=== PATIENT | female | born 2000 | race American Indian/Alaskan Native ===

== ENCOUNTER 2022-04-25 21:31 | Observation (INO) ==
[2022-04-25] MEDS ORDERED: IOPAMIDOL 100 ML BOTTLE IV ONE (21:32)
--- NOTE | 2022-04-25 21:36 | Emergency Department Note ---
HPI General Chief complaint: Cold/Flu Symptoms Stated complaint: cold flu symptoms Time Seen by Provider: 04/25/22 21:35 History of Present Illness HPI Narrative: Narrative: Patient is a 22-year-old female with no significant history who presents to the emergency department due to headache, runny nose, cough, side pain when she coughs, and decreased urinary frequency. Patient states that she became ill approximately 2 weeks ago with runny nose and cough. She states at that time she also had a sore throat. She states that this started to get better, and then she went to [place] recently. She states that while in [place] she started to have worsening symptoms including worsening cough. She states that she started to have rib pain in the side of the chest on the right. She states that this pain is when she coughs. She also endorses runny nose. She endorses shortness of breath when she is coughing. She states that she had nausea and vomiting yesterday, but not today. She states that she felt like she started to cough more when she was drinking water, so stopped drinking as much water, and was eating more soup. She states that she started to have a decreased frequency of urination, and some lightheadedness. She denies any other symptoms at this time. Related Data Home Medications Medication Instructions Recorded Confirmed No Known Home Meds 04/25/22 04/25/22 Allergies Allergy/AdvReac Type Severity Reaction Status Date / Time No Known Drug Allergies Allergy Unverified 04/25/22 21:38 Review of Systems ROS ROS Narrative: Narrative: Constitutional: Reports fever and chills; Denies weakness Eyes: Denies eye pain or vision change ENT ED: Reports rhinorrhea; Denies throat pain or hearing loss Cardiovascular: Denies chest pain or edema Respiratory: Reports shortness of breath and cough Gastrointestinal: Reports nausea and vomiting; Denies abdominal pain, diarrhea, constipation, hematochezia or melena Musculoskeletal: Denies back pain or myalgia Integumentary: Denies rash or lesions Neurological: Denies headache, weakness, numbness, confusion, abnormal gait or dizziness Endocrine: Denies fatigue or polyuria Hematological/Lymphatic: Denies easy bleeding or easy bruising [facility] Narrative Patient History Narrative: Narrative: Medical/Surgical/Family History All Active Problems (Updated 04/26/22 @ 01:58 by Basim Remy MD) Pneumonia (Acute) Tachycardia (Acute) Exam Narrative Narrative: Narrative: General General appearance: Present alert and in no apparent distress; Absent anxious, appears intoxicated or sleepy Head Head: Present atraumatic and normocephalic Eye Eye: Present EOMI; Absent scleral icterus or nystagmus ENT ENT: Present mucous membranes moist; Absent nasal congestion Neck Neck: Present full ROM; Absent tenderness Chest Chest: Present normal inspection and symmetric chest wall rise; Absent tenderness Respiratory Respiratory: Present normal lung sounds bilaterally and decreased breath sounds (Left lower lung field); Absent respiratory distress or accessory muscle use Cardiovascular Cardiovascular: Present regular rate, normal rhythm and normal heart sounds Adbominal Abdominal: Present soft and normal bowel sounds; Absent distention or tenderness Extremities Extremities: Present normal inspection and full ROM Back Back: Present normal inspection and full ROM Neurological Neurological: Present alert and oriented X3 Psychiatric Psychiatric: Present normal affect and normal mood Skin Skin: Present warm (WNL), dry and normal color Course Vital Signs Vital signs: Vital Signs Temperature 101.8 F H 04/25/22 21:32 Pulse Rate 129 H 04/25/22 21:32 Respiratory Rate 20 04/25/22 21:32 Blood Pressure 134/79 04/25/22 21:32 Pulse Oximetry (%) 95 04/25/22 21:32 Oxygen Delivery Method 04/25/22 21:32 Temperature 99.7 F H 04/26/22 01:32 Pulse Rate 114 H 04/26/22 01:01 Respiratory Rate 20 04/25/22 21:32 Blood Pressure 115/73 04/26/22 01:01 Pulse Oximetry (%) 96 04/26/22 01:01 Oxygen Delivery Method 04/25/22 21:32 [facility]DM Narrative Medical decision making narrative: Narrative: Patient is a 22-year-old female who presents to the emergency department due to cough, right-sided chest pain, and general malaise. Differential diagnoses include COVID, influenza, other viral illness, bacterial pneumonia, and pulmonary embolus. Patient's labs are significant for white blood cell count of 13.1, D-dimer of 0. 7, and procalcitonin of 0.17. Patient received 2 L of fluid without resolution of tachycardia. Because patient met sepsis criteria she was given ceftriaxone and azithromycin. Patient CT scan does not demonstrate a pulmonary embolus, but does demonstrate left lower lobe pneumonia. Due to patient meeting sepsis criteria and due to her persistent tachycardia I spoke to Dr. Evans and he has agreed to admit patient. Lab Data Result diagrams: 04/26/22 22:44 Labs: Lab Results 04/25/22 04/25/22 04/25/22 Range/Units 22:13 22:44 22:44 WBC (4.5-11.0) K/mcL RBC (3.59-5.38) M/mcL Hgb (11.2-15.7) g/dL Hct (34.1-44.9) % POC Hct 34.0 L (36-48) MCV (80.0-100.0) fL MCH (26.0-34.0) pg MCHC (31.0-36.0) g/dL RDW (11.5-14.5) % Plt Count (140-440) K/mcL MPV (8.8-12.5) fL Immature Gran % (Auto) (0.0-0.5) % Neut % (Auto) (38.0-78.0) % Lymph % (Auto) (15.5-49.0) % [place] % (Auto) (1.0-12.0) % Eos % (Auto) (0.0-7.0) % Baso % (Auto) (0.0-2.0) % Lymph # (Auto) (1.50-4.80) K/mcL [place] # (Auto) (0.10-0.90) K/mcL Eos # (Auto) (0.00-0.70) K/mcL Baso # (Auto) (0.00-0.30) K/mcL Immature Gran # (0.00-0.05) K/mcl Absolute Neutrophils (1.80-8.00) K/mcL D-Dimer 0.70 H (0.27-0.50) ug/mL POC VBG pH (7.32-7.42) POC VBG pCO2 at Temp (41-51) POC VBG pO2 (25-40) POC VBG HCO3 (24-28) POC VBG Total CO2 (25-29) POC Venous O2 Sat (40-70) POC VBG Base Excess (-2-2) VBG Lactic Acid (0.5-2) POC Sodium 136 (133-145) POC Potassium 3.8 (3.3-5.1) POC Chloride 104 (96-108) POC Total CO2 22.0 (22-30) POC BUN 8 (6-20) POC Creatinine 0.7 (0.6-1.2) POC Glucose 122 H (70-105) POC WB Ioniz Calcium 1.10 L (1.16-1.32) Procalcitonin 0.17 H (<0.10) ng/mL Urine Color Urine Appearance (Clear) Urine pH (5.0-9.0) Ur Specific [place] (1.000-1.035) Urine Protein (Negative) mg/dL Urine Glucose (UA) (Negative) mg/dL Urine Ketones (Negative) mg/dL Urine Occult Blood (Negative) mukesh/mcL Urine Nitrate (Negative) Urine Bilirubin (Negative) mg/dL Urine Urobilinogen mg/dL Ur Leukocyte Esterase (Negative) /uL Urine RBC (0-3) /hpf Urine WBC (0-4) /hpf Ur Squamous Epith Cells (0-4) /hpf Ur Transition Epith Cell (0-2) /hpf Urine Bacteria (0) /hpf Urine Mucus (None) /hpf Ur Culture Indicated? 04/25/22 04/25/22 04/26/22 Range/Units 23:30 23:58 22:44 WBC 13.1 H (4.5-11.0) K/mcL RBC 3.87 (3.59-5.38) M/mcL Hgb 11.6 (11.2-15.7) g/dL Hct 34.8 (34.1-44.9) % POC Hct (36-48) MCV 89.9 (80.0-100.0) fL MCH 30.0 (26.0-34.0) pg MCHC 33.3 (31.0-36.0) g/dL RDW 12.2 (11.5-14.5) % Plt Count 232 (140-440) K/mcL MPV 11.5 (8.8-12.5) fL Immature Gran % (Auto) 0.5 (0.0-0.5) % Neut % (Auto) 80.8 H (38.0-78.0) % Lymph % (Auto) 7.6 L (15.5-49.0) % [place] % (Auto) 10.2 (1.0-12.0) % Eos % (Auto) 0.6 (0.0-7.0) % Baso % (Auto) 0.3 (0.0-2.0) % Lymph # (Auto) 1.00 L (1.50-4.80) K/mcL [place] # (Auto) 1.34 H (0.10-0.90) K/mcL Eos # (Auto) 0.08 (0.00-0.70) K/mcL Baso # (Auto) 0.04 (0.00-0.30) K/mcL Immature Gran # 0.06 H (0.00-0.05) K/mcl Absolute Neutrophils 10.57 H (1.80-8.00) K/mcL D-Dimer (0.27-0.50) ug/mL POC VBG pH 7.43 H (7.32-7.42) POC VBG pCO2 at Temp 29.3 L (41-51) POC VBG pO2 68 H (25-40) POC VBG HCO3 19.5 L (24-28) POC VBG Total CO2 20.0 L (25-29) POC Venous O2 Sat 94.0 H (40-70) POC VBG Base Excess -5.0 L (-2-2) VBG Lactic Acid 0.6 (0.5-2) POC Sodium (133-145) POC Potassium (3.3-5.1) POC Chloride (96-108) POC Total CO2 (22-30) POC BUN (6-20) POC Creatinine (0.6-1.2) POC Glucose (70-105) POC WB Ioniz Calcium (1.16-1.32) Procalcitonin (<0.10) ng/mL Urine Color Lt. yellow Urine Appearance Sl cloudy A (Clear) Urine pH 7.0 (5.0-9.0) Ur Specific [place] 1.010 (1.000-1.035) Urine Protein Trace A (Negative) mg/dL Urine Glucose (UA) Negative (Negative) mg/dL Urine Ketones Negative (Negative) mg/dL Urine Occult Blood Moderate A (Negative) mukesh/mcL Urine Nitrate Negative (Negative) Urine Bilirubin Negative (Negative) mg/dL Urine Urobilinogen Normal mg/dL Ur Leukocyte Esterase Small A (Negative) /uL Urine RBC 4 H (0-3) /hpf Urine WBC 6 H (0-4) /hpf Ur Squamous Epith Cells 10 H (0-4) /hpf Ur Transition Epith Cell < 1 (0-2) /hpf Urine Bacteria Mod A (0) /hpf Urine Mucus Few A (None) /hpf Ur Culture Indicated? No ED POC Tests ED POC Tests: AP - Influenza A Negative AP - Influenza B Negative AP - SARS Antigen Negative HCG POC Results Negative EKG Data EKG #1: EKG attestation: Yes I reviewed and interpreted this EKG. EKG results narrative: Sinus tachycardia with a rate of 121, normal axis, [place] 138, QRS of 101, QTC of 412, T wave flattening in leads III and aVF, and absence of ST elevation or depression. Discharge Plan Patient/Caregiver Discharge Instructions Pt seen by FLUX TUBE ATTENDANT/PA only: No Clinical Impression: Pneumonia, Tachycardia Patient Disposition: Xfer As Inpt ([facility]) Condition: Undetermined Follow up with: No,PCP [Primary Care Provider] - Prescriptions: No Action No Known Home Meds
[2022-04-25] MEDS ORDERED: LACTATED RINGERS 1,000 ML IV ONE (21:43)
[2022-04-25] MEDS ORDERED: ACETAMINOPHEN 325 MG TABLET PO ONE (21:43)
[2022-04-25 22:17] LABS: POC Calcium, Ionized 1.1 (1.16-1.32); POC Creatinine 0.7 (0.6-1.2); POC Potassium 3.8 (3.3-5.1)
[2022-04-25] MEDS ORDERED: cefTRIAXone 1 GM VIAL IV ONE (22:43)
[2022-04-25] MEDS ORDERED: 0.9 % SODIUM CHLORIDE 1,000 ML IV ONE (22:51)
[2022-04-26 01:02] LABS: Appearance,Urine SL CLOUDY (Clear); Bacteria,Urine MOD /hpf (0); Bilirubin,Urine NEGATIVE (Negative); Color,Urine LT. YELLOW; Culture Indicated,Urine No; Glucose,Urine (UA) NEGATIVE (Negative); Ketones,Urine NEGATIVE (Negative); Leukocyte Esterase,Urine SMALL /uL (Negative); Mucus,Urine FEW /hpf; Nitrate,Urine NEGATIVE (Negative); Protein,Urine TRACE mg/dL (Negative); Urine Blood MODERATE ery/mcL (Negative); Urine RBC 4 /hpf (0-3); Urine Squamous Epithelial Cell 10 /hpf (0-4); Urine Transitional Epi Cells < 1 /hpf (0-2); Urine WBC 6 /hpf (0-4); Urobilinogen,Urine Normal
[2022-04-26] MEDS ORDERED: AZITHROMYCIN 500 MG in DEXTROSE 5% IN WATER 250 ML IV ONE (01:05)
[2022-04-26 01:37] LABS: Basophils # (Auto) 0.04 K/mcL (0.00-0.30); Basophils % (Auto) 0.3 % (0.0-2.0); Eosinophils # (Auto) 0.08 K/mcL (0.00-0.70); Eosinophils % (Auto) 0.6 % (0.0-7.0); Hematocrit 34.8 % (34.1-44.9); Hemoglobin 11.6 g/dL (11.2-15.7); Lymphocytes % (Auto) 7.6 % (15.5-49.0); Mean Cell Volume 89.9 fL (80.0-100.0); Mean Corpuscular HGB Conc 33.3 g/dL (31.0-36.0); Mean Platelet Volume 11.5 fL (8.8-12.5); Monocytes # (Auto) 1.34 K/mcL (0.10-0.90); Monocytes % (Auto) 10.2 % (1.0-12.0); Neutrophils % (Auto) 80.8 % (38.0-78.0); Platelet Count 232 K/mcL (140-440); RBC 3.87 M/mcL (3.59-5.38); Red Cell Distribution Width 12.2 % (11.5-14.5); WBC 13.1 K/mcL (4.5-11.0)
[2022-04-26] MEDS ORDERED: LACTATED RINGERS 1,000 ML IV SCH (02:00)
--- NOTE | 2022-04-26 07:41 | Internal Med History&Physical ---
HPI History of Present Illness Patient information: Note initiated : 04/26/22 at 7:35 am Service Date, if different from initiated Date: [] Patient: Kajal Hatch 22 y/o F admitted on 04/26/22 for cold flu symptoms. Chief Complaint: [] History of present illness: Ms. Hatch is a 22 year old female with no significant past medical history who presented to the emergency department for headache, rhinorrhea, productive cough and right-sided pleuritic chest pain. The patient also said she was urinating less frequently. The patient developed a viral-like illness about 2 weeks ago with a cough and runny nose. The patient says that her symptoms began to improve and she went to [place] with some friends however the symptoms then began to worsen. In the emergency department, the patient had a fever, tachycardia, leukocytosis. CTA done in the emergency department was reported as negative by the ED provider, final radiology report still pending at the time of admission. There is a dense consolidation in the left lower lobe consistent with pneumonia. Hospital medicine was consulted for admission for community- acquired pneumonia. The patient received ceftriaxone and azithromycin in the ED prior to admission. Upon further discussion, the patient denies substance use, physical exam does not suggest another focus of infection to explain the patient's septic presentation. Review of systems Constitutional: Positive for fevers and fatigue Cardiovascular: Positive for elevated heart rate, pleuritic right-sided chest pain Respiratory: Positive for productive cough and dyspnea Gastrointestinal: no abdominal pain, no nausea, vomiting, or diarrhea Genitourinary: Positive for decreased urination, no dysuria Musculoskeletal: no arthralgia or myalgia Integumentary: no skin lesion or wound Neurological: no focal weakness or numbness Psychiatric: no anxiety or depression Physical exam Head: Atraumatic, normal inspection. Eyes: normal appearance, no scleral icterus. Neck: full ROM Respiratory: Decreased respiratory sounds left lower lung field, crackles left midlung field. Cardiovascular: Regular tachycardia, S1, S2, no murmurs appreciated GI/Abdominal: soft, nontender, no guarding. Extremities: full range of motion, nontender. Neurological: CN II-XII intact, intact motor, intact sensation. Psychiatric: normal mood. Skin: warm, normal color PFSH PFSH All Active Problems (Updated 04/26/22 @ 01:58 by Basim Remy MD) Pneumonia (Acute) Tachycardia (Acute) Social History smoking status: Smoker, status unknown MEDS/ALLERGIES Home Medications and Allergies Home Medications Medication Instructions Recorded Confirmed Type No Known Home Meds 04/25/22 04/25/22 History Allergies Allergy/AdvReac Type Severity Reaction Status Date / Time No Known Drug Allergies Allergy Unverified 04/25/22 21:38 EXAM Constitutional Vitals: Temp Pulse Resp BP Pulse Ox O2 Del Method 98.2 F 113 H 15 119/70 95 04/26/22 03:13 04/26/22 03:13 04/26/22 03:13 04/26/22 03:13 04/26/22 03:13 04/26/22 03:13 DATA Data Completed and Pending Labs: Labs from last 24 hours 04/26/22 04/25/22 04/25/22 22:44 23:58 23:30 WBC 13.1 H RBC 3.87 Hgb 11.6 Hct 34.8 POC Hct MCV 89.9 MCH 30.0 MCHC 33.3 RDW 12.2 Plt Count 232 MPV 11.5 Immature Gran % (Auto) 0.5 Neut % (Auto) 80.8 H Lymph % (Auto) 7.6 L [place] % (Auto) 10.2 Eos % (Auto) 0.6 Baso % (Auto) 0.3 Lymph # (Auto) 1.00 L [place] # (Auto) 1.34 H Eos # (Auto) 0.08 Baso # (Auto) 0.04 Immature Gran # 0.06 H Absolute Neutrophils 10.57 H D-Dimer POC VBG pH 7.43 H POC VBG pCO2 at Temp 29.3 L POC VBG pO2 68 H POC VBG HCO3 19.5 L POC VBG Total CO2 20.0 L POC Venous O2 Sat 94.0 H POC VBG Base Excess -5.0 L VBG Lactic Acid 0.6 POC Sodium POC Potassium POC Chloride POC Total CO2 POC BUN POC Creatinine POC Glucose POC WB Ioniz Calcium Procalcitonin Urine Color Lt. yellow Urine Appearance Sl cloudy A Urine pH 7.0 Ur Specific [place] 1.010 Urine Protein Trace A Urine Glucose (UA) Negative Urine Ketones Negative Urine Occult Blood Moderate A Urine Nitrate Negative Urine Bilirubin Negative Urine Urobilinogen Normal Ur Leukocyte Esterase Small A Urine RBC 4 H Urine WBC 6 H Ur Squamous Epith Cells 10 H Ur Transition Epith Cell < 1 Urine Bacteria Mod A Urine Mucus Few A Ur Culture Indicated? No 04/25/22 04/25/22 04/25/22 22:44 22:44 22:13 WBC RBC Hgb Hct POC Hct 34.0 L MCV MCH MCHC RDW Plt Count MPV Immature Gran % (Auto) Neut % (Auto) Lymph % (Auto) [place] % (Auto) Eos % (Auto) Baso % (Auto) Lymph # (Auto) [place] # (Auto) Eos # (Auto) Baso # (Auto) Immature Gran # Absolute Neutrophils D-Dimer 0.70 H POC VBG pH POC VBG pCO2 at Temp POC VBG pO2 POC VBG HCO3 POC VBG Total CO2 POC Venous O2 Sat POC VBG Base Excess VBG Lactic Acid POC Sodium 136 POC Potassium 3.8 POC Chloride 104 POC Total CO2 22.0 POC BUN 8 POC Creatinine 0.7 POC Glucose 122 H POC WB Ioniz Calcium 1.10 L Procalcitonin 0.17 H Urine Color Urine Appearance Urine pH Ur Specific [place] Urine Protein Urine Glucose (UA) Urine Ketones Urine Occult Blood Urine Nitrate Urine Bilirubin Urine Urobilinogen Ur Leukocyte Esterase Urine RBC Urine WBC Ur Squamous Epith Cells Ur Transition Epith Cell Urine Bacteria Urine Mucus Ur Culture Indicated? A/P Narrative A/P Narrative: Assessment: 22-year-old female with no significant past medical history admitted for sepsis secondary to community-acquired pneumonia. #Sepsis secondary to community-acquired pneumonia Plan -Ceftriaxone and azithromycin for CAP. -IV fluids. -Follow WBC, monitor respiratory status and fever trend. -MRSA PCR. -Blood cultures x2. -Sputum gram stain and culture. -[place] PCR. -Follow-up pending CTA chest and chest x-ray report. -Regular diet. -CODE STATUS: Full -Disposition: Home when stable. Time Spent With Patient Time: Total time spent is greater than 50% in coordination of care (as documented) at patient's floor/unit and/or counseling patient: QUALITY VTE Deep Vein Thrombosis/Pulmonary Embolism Present on Admission: Yes
--- NOTE | 2022-04-26 08:31 | XRay Report ---
HISTORY: Cold and flu symptoms with cough and rib pain FINDINGS: There is a moderate size consolidating infiltrate in the left lower lobe, predominantly located behind the heart. Lung volumes are normal. Right lung is clear. No pleural effusion is present. No adenopathy is detected. The heart size is normal. No skeletal lesion is seen. IMPRESSION: Moderate left lower lobe pneumonia Interpreted and Authenticated by: Ralph Zuniga 04/26/22
--- NOTE | 2022-04-26 08:40 | Cat Scan Report ---
History: Cough, chest pain, elevated serum d-dimer level, left lower lobe pulmonary infiltrate TECHNIQUE: Following injection of intravenous nonionic contrast the chest was imaged during the pulmonary arterial phase. Sagittal, coronal and MIPS images were created. The radiation exposure was limited using dose reduction technology. FINDINGS: The pulmonary arteries are normal with no intraluminal filling defects. Aorta is normal in caliber and there is no atherosclerotic disease. The heart is normal in size and contour. There is a moderate-sized densely consolidating alveolar infiltrate in the left lower lobe. There are air bronchograms peripherally. In the second order bronchi there is mucous plugging. No pleural effusion is present. There are no enlarged lymph nodes. The remainder of the lungs are clear and normally expanded. No pleural effusion is present. IMPRESSION: Moderate left lower lobe pneumonia No evidence of pulmonary emboli Interpreted and Authenticated by: Ralph Zuniga 04/26/22
--- NOTE | 2022-04-26 08:51 | EKG ---
[facility] Test Date: 2022-04-25 Pat Name: Kajal Hatch Department: ED Room: Gender: Female Audit Clerk: : 2000 Requested By: Basim Remy Order Number: [id number] Reading MD: Juwan Zuniga M.D. Measurements Intervals [place] Rate: 121 P: 79 [place]: 138 QRS: 65 QRSD: 101 T: 4 QT: 290 QTc: 412 Interpretive Statements Sinus tachycardia Consider right ventricular hypertrophy Borderline T abnormalities, inferior leads Electronically Signed On 04-26-2022 8:51:04 PST by Juwan Zuniga M.D. /store/[email or web address]/[id number]
[2022-04-26] MEDS: cefTRIAXone 1 GM VIAL IV SCH (16:39)
[2022-04-26] MEDS: AZITHROMYCIN 500 MG in DEXTROSE 5% IN WATER 250 ML IV SCH (16:39)
[2022-04-26] MEDS: ACETAMINOPHEN 325 MG TABLET PO PRN (18:44)
[2022-04-27] MEDS: ACETAMINOPHEN 325 MG TABLET PO PRN ×2 (01:32→05:26)
[2022-04-27 06:59] LABS: Basophils # (Auto) 0.03 K/mcL (0.00-0.30); Basophils % (Auto) 0.3 % (0.0-2.0); Eosinophils # (Auto) 0.68 K/mcL (0.00-0.70); Eosinophils % (Auto) 6.7 % (0.0-7.0); Hematocrit 31.6 % (34.1-44.9); Hemoglobin 10.4 g/dL (11.2-15.7); Lymphocytes # (Auto) 1.57 K/mcL (1.50-4.80); Lymphocytes % (Auto) 15.5 % (15.5-49.0); Mean Cell Volume 91.1 fL (80.0-100.0); Mean Corpuscular HGB Conc 32.9 g/dL (31.0-36.0); Mean Platelet Volume 11.1 fL (8.8-12.5); Monocytes # (Auto) 0.81 K/mcL (0.10-0.90); Neutrophils % (Auto) 69.1 % (38.0-78.0); Platelet Count 230 K/mcL (140-440); RBC 3.47 M/mcL (3.59-5.38); Red Cell Distribution Width 12.3 % (11.5-14.5); WBC 10.2 K/mcL (4.5-11.0)
[2022-04-27 07:42] LABS: ALT/SGPT 12 U/L (<40); AST/SGOT 12 U/L (<32); Albumin 3.5 gm/dL (3.2-5.2); Albumin/Globulin Ratio 0.9 (1.0-2.3); Alkaline Phosphatase 94 U/L (39-117); Bilirubin,Direct < 0.2 mg/dL (0-0.3); Bilirubin,Total 0.2 mg/dL (0.1-1.0); Blood Urea Nitrogen 4 mg/dL (6-20); Calcium 9.3 mg/dL (8.6-10.4); Carbon Dioxide 22 mmol/L (22-30); Chloride 106 mmol/L (96-108); Globulin 3.7 gm/dL (2.2-3.7); Glomerular Filtration Rate 131; Glucose 84 mg/dL (70-105); Lactate Dehydrogenase 170 U/L (135-225); Phosphorous 3.4 mg/dL (2.5-4.5); Triglycerides 96 mg/dL (<125); Uric Acid 3.4 mg/dL (2.5-8.0)
[2022-04-27] MEDS: AZITHROMYCIN 500 MG in DEXTROSE 5% IN WATER 250 ML IV SCH (08:50)
[2022-04-27] MEDS: cefTRIAXone 1 GM VIAL IV SCH (08:50)
--- NOTE | 2022-04-27 10:39 | Discharge Summary ---
Discharge Provider Provider IMPORTANT FOLLOW-UP INFORMATION FOR PCP: Patient information: Note initiated : 04/27/22 at 10:37 am Service Date, if different from initiated Date: [] Patient: Kajal Hatch 22 y/o F admitted on 04/26/22 for cold flu symptoms; sepsis and pneumonia. Chief Complaint: [] Date of admission: 04/26/22 02:30 Discharge date: 04/27/22 Primary care physician: PCP No Consults: 04/26/22 Consult to Physician [CONS] Stat Comment: Consulting Provider: Bhavik Evans Reason For Exam: Physician to Consult COURSE Hospital Course Hospital course: Ms. Hatch is a 22 year old female with no significant past medical history who presented to the emergency department for headache, rhinorrhea, productive cough and right-sided pleuritic chest pain. The patient also said she was urinating less frequently. The patient developed a viral-like illness about 2 weeks ago with a cough and runny nose. The patient says that her symptoms began to improve and she went to [place] with some friends however the symptoms then began to worsen. In the emergency department, the patient had a fever, tachycardia, leukocytosis. CTA done in the emergency department was reported as negative by the ED provider, final radiology report still pending at the time of admission. There is a dense consolidation in the left lower lobe consistent with pneumonia. Hospital medicine was consulted for admission for community- acquired pneumonia. The patient received ceftriaxone and azithromycin in the ED prior to admission. Upon further discussion, the patient denies substance use, physical exam does not suggest another focus of infection to explain the patient's septic presentation. 04/27 Vital stable, fevers resolved, leukocytosis resolved. Patient is discharged to home with a prescription for 5 more days of oral levofloxacin. Physical exam Head: Atraumatic, normal inspection. Eyes: normal appearance, no scleral icterus. Neck: full ROM Respiratory: Decreased respiratory sounds left lower lung field, crackles left midlung field. Cardiovascular: Normal rate and rhythm, S1, S2, no murmurs appreciated GI/Abdominal: soft, nontender, no guarding. Extremities: full range of motion, nontender. Neurological: CN II-XII intact, intact motor, intact sensation. Psychiatric: normal mood. Skin: warm, normal color Discharge diagnosis: Sepsis secondary to community-acquired pneumonia Time Spent with Patient Time attestation: Total time spent providing and/or coordinating discharge services: Time spent: Less than 30 minutes EXAM Constitutional Vitals: Temp Pulse Resp BP Pulse Ox O2 Del Method 97.2 F 77 16 112/64 98 04/27/22 08:00 04/27/22 08:00 04/27/22 08:00 04/27/22 08:00 04/27/22 08:00 04/27/22 08:00 Discharge Data Data Completed and Pending Labs on day of discharge: Labs from last 24 hours 04/27/22 04/27/22 05:19 05:19 WBC 10.2 RBC 3.47 L Hgb 10.4 L Hct 31.6 L MCV 91.1 MCH 30.0 MCHC 32.9 RDW 12.3 Plt Count 230 MPV 11.1 Immature Gran % (Auto) 0.4 Neut % (Auto) 69.1 Lymph % (Auto) 15.5 [place] % (Auto) 8.0 Eos % (Auto) 6.7 Baso % (Auto) 0.3 Lymph # (Auto) 1.57 [place] # (Auto) 0.81 Eos # (Auto) 0.68 Baso # (Auto) 0.03 Immature Gran # 0.04 Absolute Neutrophils 7.03 Sodium 142 Potassium 3.7 Chloride 106 Carbon Dioxide 22 Anion Gap 14.0 BUN 4 L Creatinine 0.6 GFR Calculation 131 Glucose 84 Uric Acid 3.4 Calcium 9.3 Phosphorus 3.4 Magnesium 2.1 Total Bilirubin 0.2 Direct Bilirubin < 0.2 GGT 18 AST 12 ALT 12 Alkaline Phosphatase 94 Lactate Dehydrogenase 170 Total Protein 7.2 Albumin 3.5 Globulin 3.7 Albumin/Globulin Ratio 0.9 L Triglycerides 96 Preliminary micro results at discharge 04/25/22 23:22 Blood Culture - Preliminary Blood 04/25/22 23:18 Blood Culture - Preliminary Blood Discharge Plan Patient/Caregiver Discharge Instructions Activity: increase activity as tolerated Diet: Regular Diet Stand Alone Forms: Work/Release Restrictions Prescriptions: New levofloxacin 750 mg tablet 750 mg PO QDAY 5 Days Qty: 5 0RF Follow Up Plan Follow up with: No,PCP [Primary Care Provider] - Patient Disposition: Home, Self-Care Prognosis: Undetermined Overall status at discharge: patient is progressing back to baseline Discharge Orders: Discharge Order (Routine); Ordered 04/27/22 Ordered By: Bhavik Evans QUALITY VTE Deep Vein Thrombosis/Pulmonary Embolism Present on Admission: Yes
== END 2022-04-27 13:05 | disposition home or self-care (01) ==
LOC: MEDSUR 21:31 → ED 21:31 → MEDSUR 04-26 02:30
PROVIDERS: ADMIT Internal Medicine; ATTEND Internal Medicine